=== PATIENT | female | born 1990 | race Caucasian/White ===

== ENCOUNTER 2020-10-29 12:13 | Emergency (ER) | payer MEDICAID ==
[~2020-10-29] VITALS: Ht 160 cm; Wt 108.9 kg
[2020-10-29 12:13] VITALS: BP_SYST 145
--- NOTE | 2020-10-29 12:13 | NUR ---
Patient triaged and placed in waiting room. VSS and patient appears in no acute distress at this time. Accompanied by FRIENDS, awaiting available bed, and MD notified of need for MSE.
--- NOTE | 2020-10-29 12:56 | NUR ---
BROUGHT BACK TO BED #8 ADN WILL ASSUME CARE
--- NOTE | 2020-10-29 13:02 | NUR ---
DR GARAY AT BEDSIDE FOR EVALUATION
[2020-10-29] MEDS ORDERED: DIVA250T PO (13:24)
[2020-10-29] MEDS ORDERED: DIVA-74 PO (13:24)
[2020-10-29 13:31] VITALS: BP_SYST 137
--- NOTE | 2020-10-29 13:32 | NUR ---
Patient given written and verbal discharge instructions and verbalizes understanding. ER MD discussed with patient the results and treatment provided. Patient in stable condition. ID arm band removed. Rx of DEPAKOTE given. Patient educated on pain management and to follow up with PMD. Pain Scale 0/10. Opportunity for questions provided and answered. Medication side effect fact sheet provided. GIVEN [place] ADDRESS/PHONE NUMBER AND FOR FOLLOW UP
== END 2020-10-29 13:31 | disposition home or self-care (01) ==
LOC: SED 12:13
DX: F25.9 Schizoaffective disorder, unspecified (principal); F31.9 Bipolar disorder, unspecified; F17.290 Nicotine dependence, other tobacco product, uncomplicated; Z76.0 Encounter for issue of repeat prescription
CPT/HCPCS: 99281; 99283

== ENCOUNTER 2020-12-07 10:18 | Emergency (ER) | payer MEDICAID, SELFPAY ==
[~2020-12-07] VITALS: Ht 160 cm; Wt 103.0 kg
[~2020-12-07 10:18] MED LIST: DIVA-74 PO; DIVA250T PO
[2020-12-07 10:20] VITALS: BP_SYST 115
[2020-12-07] MEDS ORDERED: ONDA4TAB5 PO (11:04)
== END 2020-12-07 11:17 | disposition home or self-care (01) ==
LOC: SED 10:18
DX: B34.9 Viral infection, unspecified (principal); R11.2 Nausea with vomiting, unspecified; Z20.822 Contact with and (suspected) exposure to COVID-19
CPT/HCPCS: 36415; 86710; 99283